=== PATIENT | female | born 1965 | race Caucasian/White ===

== ENCOUNTER → 2016-12-16 | Outpatient (CLI) | payer BC ==
[2016-12-16 05:24] LABS: ABSOLUTE BASOPHILS # (AUTO) 0.1 10^3/uL (0.0-0.2); ABSOLUTE EOSINOPHILS # (AUTO) 0.2 10^3/uL (0.0-0.6); ABSOLUTE LYMPHOCYTES (AUTO) 3.3 10^3/uL (0.5-4.7); ABSOLUTE MONOCYTES (AUTO) 0.7 10^3/uL (0.1-1.4); ABSOLUTE NEUT (AUTO) 6.8 10^3/uL (1.7-8.2); BASOPHILS % (AUTO) 0.8 % (0-2); EOSINOPHILS % (AUTO) 1.8 % (0-6); HEMATOCRIT 40.8 % (36.0-47.0); HEMOGLOBIN 13.7 g/dL (12.0-15.5); HGB HCT DIFFERENCE 0.3; MEAN CORPUSCULAR HEMOGLOBIN 31.1 pg (27.0-33.4); MEAN CORPUSCULAR HGB CONC 33.7 g/dL (32.0-36.0); MEAN CORPUSCULAR VOLUME 93 fl (80-97); MONOCYTES % (AUTO) 6.7 % (3-13); RED BLOOD COUNT 4.41 10^6/uL (3.72-5.28); RED CELL DISTRIBUTION WIDTH 12.8 % (11.5-14.0); SEGMENTED NEUTROPHILS % (AUTO) 60.7 % (42-78); WHITE BLOOD COUNT 11.1 10^3/uL (4.0-10.5)
[2016-12-16 05:26] LABS: PROTHROMBIN TIME 12.3 SEC (11.4-15.4)
[2016-12-16 05:40] LABS: ANION GAP 13 (5-19); BLOOD UREA NITROGEN 15 mg/dL (7-20); CALCIUM 10.2 mg/dL (8.4-10.2); CARBON DIOXIDE 27 mmol/L (22-30); CHLORIDE 102 mmol/L (98-107); CREATININE RESULT 0.77 mg/dL (0.52-1.25); GLUCOSE 102 mg/dL (75-110); POTASSIUM 4.5 mmol/L (3.6-5.0); SODIUM 141.9 mmol/L (137-145)
== END ==
LOC: LAB 04:58
PROVIDERS: ATTEND Internal Medicine Cardiovascular Disease
DX: Z79.899 Other long term (current) drug therapy (principal)
CPT/HCPCS: 36415; 80048; 83735; 85025; 85610

== ENCOUNTER → 2019-04-19 | Outpatient (CLI) | payer BC ==
--- NOTE | 2019-04-19 12:45 | RADIOLOGY REPORT (SQ) ---
EXAM DESCRIPTION: MRI PELVIS COMBO COMPLETED DATE/TIME: 04/19/2019 12:16 pm REASON FOR STUDY: D27.0DERMOLD CYST OF RIGHT OVARY D27.0 BENIGN NEOPLASM OF RIGHT OVARY COMPARISON: None. TECHNIQUE: Multiplanar multisequence imaging performed without and with contrast including axial, sa gittal and coronal T2, axial T, axial gradient fat sat T1, axial, sagittal and coronal fat sat T2 pos t contrast. CONTRAST TYPE AND DOSE: 10 mL Dotarem. RENAL FUNCTION: None required. The patient is less than 50 years old. LIMITATIONS: None. FINDINGS: BLADDER AND URETHRA: No focal bladder wall thickening or nodularity. Smooth mucosa. The urethra has smooth contour with no focal asymmetry. No abnormal enhancement. No focal lesions. PELVIC SOFT TISSUES: Normal. No masses. UTERUS: Normal size. No masses. Junctional zone normal. Uterus is 6 x 3 x 4 cm in size. RIGHT OVARY: Right ovary is 3.8 x 1.2 x 3 cm in size. A 1.8 x 1.8 cm fat signal nodule is present in the right ovary, with signal dropout on fat-sat T1 post contrast image [id number]. This represents a de rmoid. LEFT OVARY: Normal size. No masses. Left ovary 2.6 x 1.4 x 1.1 cm size FREE FLUID: None. PELVIC SKELETAL STRUCTURES: No abnormal marrow signal. EXTRA PELVIS SOFT TISSUES: No masses. OTHER: No other significant finding. IMPRESSION: 1.8 cm fatty nodule in the right ovary likely a dermoid TECHNICAL DOCUMENTATION: JOB ID: [id number] [email or web address]- All Rights Reserved Reading location - IP/workstation name: [email or web address]
== END ==
LOC: RAD 11:24
PROVIDERS: ATTEND Nurse Practitioner Family
DX: D27.0 Benign neoplasm of right ovary (principal)
CPT/HCPCS: 72197; A9576

== ENCOUNTER 2019-04-29 09:20 | Day surgery (SDC) | payer BC ==
[~2019-04-29 09:20] MED LIST: DEXAMETHASONE SOD PHOSPHATE INJ 4 MG/1 ML VIAL ONE; GLYCOPYRROLATE 1 MG/5 ML VIAL ONE; KETOROLAC TROMETHAMINE 60 MG/2 ML SDV ONE; METOCLOPRAMIDE HCL INJ/PF 10 MG/2 ML SDV ONE; NEOSTIGMINE METHYLSULFATE 10 MG/10 ML VIAL ONE; ROCURONIUM BROMIDE INJ 50 MG/5 ML VIAL IV ONE; SUCCINYLCHOLINE CHLORIDE INJ 200 MG/10 ML VIAL ONE
[2019-04-29 10:19] LABS: HEMATOCRIT 41.9 % (36.0-47.0); HEMOGLOBIN 14.2 g/dL (12.0-15.5); MEAN CORPUSCULAR HEMOGLOBIN 31.3 pg (27.0-33.4); MEAN CORPUSCULAR HGB CONC 33.8 g/dL (32.0-36.0); MEAN CORPUSCULAR VOLUME 93 fl (80-97); PLATELET COUNT 311 10^3/uL (150-450); RED BLOOD COUNT 4.53 10^6/uL (3.72-5.28); RED CELL DISTRIBUTION WIDTH 13.3 % (11.5-14.0)
[2019-04-29] MEDS ORDERED: BUPIVACAINE HCL 0.25 % INJ/PF (2.5 MG/1 ML) 30 ML VIAL ONE (11:30)
[2019-04-29] MEDS ORDERED: HYDROMORPHONE HCL INJ/PF 2 MG/ML AMPULE ONE (11:33)
[2019-04-29] MEDS ORDERED: BUPIVACAINE HCL 0.25 % INJ/PF (2.5 MG/1 ML) 30 ML VIAL INJ ONE ×2 (11:33)
[2019-04-29] MEDS ORDERED: CEFAZOLIN INJ 1 GM VIAL ONE (11:33)
[2019-04-29] MEDS ORDERED: FENTANYL CITRATE INJ/PF 100 MCG/2 ML AMPUL ONE (11:33)
[2019-04-29] MEDS ORDERED: MIDAZOLAM 2 MG/2 ML INJ ONE (11:34)
[2019-04-29] MEDS ORDERED: PROPOFOL INJ 200 MG/20 ML VIAL IV ONE (11:34)
[2019-04-29] MEDS ORDERED: ONDANSETRON HCL INJ/PF 4 MG/2 ML SDV ONE ×2 (11:34→13:51)
[2019-04-29] MEDS ORDERED: DEXAMETHASONE SOD PHOSPHATE INJ 4 MG/1 ML VIAL ONE (11:34)
[2019-04-29] MEDS ORDERED: FOSAPREPITANT DIMEGLUMINE 150 MG in NORMAL SALINE 150 ML IV PRN (12:10)
[2019-04-29] MEDS ORDERED: ONDANSETRON HCL INJ/PF 4 MG/2 ML SDV IV PRN (13:25)
[2019-04-29] MEDS ORDERED: PROMETHAZINE HCL INJ 25 MG/1 ML VIAL ONE (14:36)
[2019-04-29 15:20] VITALS: BP 110/76
--- NOTE | 2019-04-29 21:23 | EKG REPORT ---
SEVERITY:- NORMAL ECG - SINUS RHYTHM : Confirmed by: Rick Turner MD 29-Apr-2019 21:22:28
--- NOTE | 2019-05-22 17:54 | Operative Report ---
Operative Report DATE OF SURGERY: 04/29/19 PREOPERATIVE DIAGNOSIS: Right ovarian dermoid, pelvic pain, history of bilateral tubal ligation POSTOPERATIVE DIAGNOSIS: JESSICA OPERATION: Operative Laparoscopy with Right Salpingo-ophorectomy, Left Salpingectomy SURGEON: ALEXANDRIA CHAO ANESTHESIA: GA TISSUE REMOVED OR ALTERED: right fallopian tube/ovary, left fallopian tube COMPLICATIONS: None ESTIMATED BLOOD LOSS: less than 5ml INTRAOPERATIVE FINDINGS: Bilateral fallope rings from past tubal sterilization noted. Normal appearing left ovary, right dermoid PROCEDURE: Anesthesiologist: Jg Stiles MD DEVOPS ARCHITECT IV fluids: [750ml] Urine output: [125ml] Indications: [54yo with right ovarian dermoid and pelvic pain for the last 6wks presents for evaluation and management. She has a family history of breast cancer. She desires to have dermoid and bilateral fallopian tubes removed. She was diagnosed several weeks ago with salmonella and given augmentin and stool culture from 04/22 returned again positive on 04/27 and she was started on cipro. She has not had any diarrhea since 04/22. She was counseled on her options and desires to proceed with Operative laparoscopy and removal of dermod and bilateral fallopian tubes. The risks, benefits, alternatives were reviewed and she desires to proceed with planned procedure.] Procedure: The patient was taken to the operating room where general anesthesia was obtained without difficulty. The patient was then examined under anesthesia with findings as noted above with a small anteverted uterus and right adnexal mass. She was then placed in dorsal supine lithotomy position and prepped and draped in the normal sterile fashion. Wakefield speculum was then placed in the patient's vagina and the anterior lip of the cervix grasped with a single-tooth tenaculum. A Nethub uterine manipulator was then advanced into the uterus to provide a means of manipulation of the uterus. The speculum and tenaculum were then removed from the patient's cervix and vagina. Attention was then turned to the patient's abdomen where a 5 mm infraumbilical skin incision was then made. The Optiview trocar with 0 laparoscope was then advanced without difficulty under direct visualization with the Optiview trocar. This was performed while tenting the abdominal wall and these will fashion. Intraperitoneal placement was confirmed by the direct visualization. Pneumoperitoneum was then obtained with approximately 4 L carbon dioxide gas. Survey of the patient's abdomen and pelvis revealed findings as noted above. A second skin incision was then made approximately 3 cm superior 4 cm medial to the anterior superior iliac spine on the left and then a third skin incision was made approximately 3 cm superior to the lower incision. These incisions were made under direct visualization with the laparoscope. The second and third trochars were then advanced under direct visualization of the laparoscope at the sites. The right fallopian tube was then identified and followed out to the fimbriated end and the LigaSure device was used to clamp and cauterize and cut the mesosalpinx extending from the fimbriated end to the cornua of the uterus thus removing the right fallopian tube in its entirety and the utero-ovarian ligament on the right was clamped/cut and cauterized removing the right ovary and right dermoid. Attention was then turned to the left adnexa at which time the left fallopian tube was identified and followed out to the fimbriated end. LigaSure device was then used to clamp and cauterize and cut the mesosalpinx extending from the fimbriated end of the left fallopian tube to the uterine cornua thus removing the left fallopian tube in its entirety. All operative sites were visualized and noted to be hemostatic. The 2 additional trochars on the patient's left greater than removed under direct visualization. The 10 mm trocar was then removed after abdominal insufflation was removed. The fascia at the 10 mm trocar site was closed with 0 Vicryl on a UR 6 needle. The skin at all trocar sites were closed with 3-0 Monocryl in a subcuticular fashion with overlying Dermabond. After completion of skin closure of the trocar sites attention was then turned to the vagina where the Hulka uterine manipulator was removed and the bivalve speculum was replaced. Silver nitrate was applied to the tenaculum sites for hemostasis and the speculum was removed. Sponge lap needle and instrument counts were correct 3. The patient tolerated the procedure well and was taken to the recovery area awake and in stable condition.
== END 2019-04-29 15:20 | disposition home or self-care (01) ==
LOC: OROUT 09:20
PROVIDERS: ATTEND Student in an Organized Health Care Education/Training Program
DX: D27.0 Benign neoplasm of right ovary (principal); R10.2 Pelvic and perineal pain; Z98.51 Tubal ligation status; I47.1 Supraventricular tachycardia; F17.210 Nicotine dependence, cigarettes, uncomplicated; Z79.899 Other long term (current) drug therapy
CPT/HCPCS: 36415; 85027; 81025; 88305 ×2; 93005; 93010; 00840; 58661; J2250; J0690; J3490 ×2; J1100; J1885; J3010; J2765; J2710; J1170; J2550; J0330; J2405; J7050; J2704; J1453; 840